=== PATIENT | female | born 1985 | race American Indian/Alaskan Native ===

== ENCOUNTER 2017-05-31 08:53 | Day surgery (SDC) | payer BC ==
[~2017-05-31] VITALS: Ht 160 cm; Wt 57.5 kg
[~2017-05-31 08:53] MED LIST: AMOX500 PO; AZIT250 PO; CYCL10 PO; HYDACE5 PO; IBUP800 PO; MULVITMINE PO; NITR100CA PO; Norco 5-325 Ta1 EACH PO; OXYACE5T PO; PHENA200 PO; PROCODE120 PO; PRODEXEL PO
[2017-05-31] MEDS ORDERED: IBUP800 PO (09:37)
== END 2017-05-31 10:44 | disposition home or self-care (01) ==
LOC: ORSCSDS 08:53
PROVIDERS: Anesthesiology
PROC: 3E0R33Z Introduction of Anti-inflammatory into Spinal Canal, Percutaneous Approach (ICD-10-PCS; principal; 2017-05-31 10:00)
DX: M54.16 Radiculopathy, lumbar region (principal); Z87.891 Personal history of nicotine dependence; Z79.899 Other long term (current) drug therapy
CPT/HCPCS: J1040

== ENCOUNTER 2017-06-30 11:00 | Day surgery (SDC) | payer BC ==
[~2017-06-30] VITALS: Ht 160 cm; Wt 59.9 kg
== END 2017-06-30 22:52 | disposition home or self-care (01) ==
LOC: ORSCMMR 11:00
PROVIDERS: Orthopaedic Surgery
PROC: 0QSKXZZ Reposition Left Fibula, External Approach (ICD-10-PCS; principal; 2017-06-30 12:30)
PROC: 0QSH04Z Reposition Left Tibia with Internal Fixation Device, Open Approach (ICD-10-PCS; principal; 2017-06-30 12:30)
DX: S82.875A Nondisplaced pilon fracture of left tibia, initial encounter for closed fracture (principal); S82.52XA Displaced fracture of medial malleolus of left tibia, initial encounter for closed fracture; S82.832A Other fracture of upper and lower end of left fibula, initial encounter for closed fracture
CPT/HCPCS: C1713; C1769; J0690; J1100; J1170; J1885; J2250; J2405; J2550; J3010; J7120

== ENCOUNTER → 2018-02-02 | Outpatient (CLI) | payer BC | END | disposition home or self-care (01) | LOC: LAB SHORT 09:00 → LAB EV 09:00 | DX: R21 Rash and other nonspecific skin eruption (principal) | CPT/HCPCS: 87070 ==

== ENCOUNTER → 2021-10-07 | Outpatient (CLI) | payer OTHER | LOC: LAB SHORT 13:41 | DX: R22.32 Localized swelling, mass and lump, left upper limb (principal) | CPT/HCPCS: 85379 ==

== ENCOUNTER 2024-03-27 12:08 | Emergency (ER) | payer OTHER ==
[~2024-03-27] VITALS: Ht 157.5 cm; Wt 60.3 kg
[2024-03-27 12:46] VITALS: BP 129/61
== END 2024-03-27 18:34 | disposition home or self-care (01) ==
LOC: ER 12:08
DX: S93.401A Sprain of unspecified ligament of right ankle, initial encounter (principal); W17.89XA Other fall from one level to another, initial encounter; Z87.891 Personal history of nicotine dependence
CPT/HCPCS: 73610; 99283-25

== ENCOUNTER → 2024-07-12 | Outpatient (CLI) | payer OTHER ==
[2024-07-12 10:45] LABS: BASOPHILS ABSOLUTE AUTO 0.07 K/mm3 (0.00-0.23); BASOPHILS PERCENT AUTO 1 % (0-2); EOSINOPHILS ABSOLUTE AUTO 1.19 K/mm3 (0.00-0.68); EOSINOPHILS PERCENT AUTO 12 % (0-6); Hematocrit 47.2 % (33.0-51.0); Hemoglobin 16.5 g/dL (11.5-16.0); IMMATURE GRAN ABSOLUTE AUTO 0.02 K/mm3 (0.00-0.10); IMMATURE GRAN PERCENT AUTO 0 % (0-1); LYMPHOCYTES ABSOLUTE AUTO 1.71 K/mm3 (0.84-5.20); LYMPHOCYTES PERCENT AUTO 18 % (21-46); MONOCYTES ABSOLUTE AUTO 0.84 K/mm3 (0.16-1.47); MONOCYTES PERCENT AUTO 9 % (4-13); Mean Corpuscular HGB 31.5 pg (26.0-34.0); Mean Corpuscular Volume 90 fL (80-100); Mean Platelet Volume 9.2 fL (9.1-12.4); NEUTROPHILS ABSOLUTE AUTO 5.74 K/mm3 (1.96-9.15); NEUTROPHILS PERCENT AUTO 60 % (41-73); Platelet Count 221 K/mm3 (150-400); RDW Standard Deviation 39.5 fL (35.1-46.3); Red Blood Cell Count 5.24 M/mm3 (3.80-5.20); White Blood Cell Count 9.57 K/mm3 (4.00-11.30)
[2024-07-12 11:00] LABS: Albumin, Blood 4.1 g/dL (3.4-5.0); Albumin/Globulin Ratio 1.1 (0.8-1.8); Bilirubin, Total 0.4 mg/dL (0.1-1.0); Bun/Creatinine Ratio 9.2 (12.0-20.0); Calcium, Blood 9.4 mg/dL (8.5-10.1); Creatinine, Blood 0.98 mg/dL (0.40-1.00); Globulin, Blood 3.9 g/dL (2.2-4.0); Potassium, Blood 4.4 mmol/L (3.5-5.5)
== END ==
LOC: LAB 10:40 → LAB SHORT 10:40
PROVIDERS: Physician Assistant
DX: R00.0 Tachycardia, unspecified (principal); R06.02 Shortness of breath
CPT/HCPCS: 80053; 84484; 85025; 85379

== ENCOUNTER 2024-12-02 14:51 | Emergency (ER) | payer OTHER ==
[~2024-12-02] VITALS: Ht 157.5 cm; Wt 63.5 kg
[2024-12-02 15:15] VITALS: BP 127/93
[2024-12-02 16:37] LABS: BASOPHILS ABSOLUTE AUTO 0.05 K/mm3 (0.00-0.23); BASOPHILS PERCENT AUTO 1 % (0-2); EOSINOPHILS ABSOLUTE AUTO 0.59 K/mm3 (0.00-0.68); EOSINOPHILS PERCENT AUTO 7 % (0-6); Hematocrit 48.8 % (33.0-51.0); Hemoglobin 17.4 g/dL (11.5-16.0); IMMATURE GRAN ABSOLUTE AUTO 0.06 K/mm3 (0.00-0.10); IMMATURE GRAN PERCENT AUTO 1 % (0-1); LYMPHOCYTES ABSOLUTE AUTO 1.10 K/mm3 (0.84-5.20); LYMPHOCYTES PERCENT AUTO 12 % (21-46); MONOCYTES ABSOLUTE AUTO 0.89 K/mm3 (0.16-1.47); MONOCYTES PERCENT AUTO 10 % (4-13); Mean Corpuscular HGB Conc 35.7 g/dL (31.5-36.5); Mean Corpuscular Volume 88 fL (80-100); NEUTROPHILS ABSOLUTE AUTO 6.23 K/mm3 (1.96-9.15); NEUTROPHILS PERCENT AUTO 70 % (41-73); NRBC ABSOLUTE 0.00 K/mm3 (0.00-0.02); NRBC Auto 0.0 /100 WBC (0.0-0.2); RDW Coefficient Variation 12.1 % (11.7-14.2); RDW Standard Deviation 39.5 fL (35.1-46.3)
[2024-12-02 17:06] LABS: Alanine Aminotransfer (ALT/SGP 29.0 U/L (12-78); Albumin, Blood 4.6 g/dL (3.4-5.0); Albumin/Globulin Ratio 1.1 (0.8-1.8); Anion Gap 7.0 mmol/L (3-11); Aspartate Aminotrans (AST/SGOT 31.0 U/L (12-37); Bilirubin, Total 0.5 mg/dL (0.1-1.0); Blood Urea Nitrogen 12.0 mg/dL (8-24); CO2, Blood 26.0 mmol/L (21-32); Calcium, Blood 9.8 mg/dL (8.5-10.1); Chloride, Blood 105.0 mmol/L (98-108); Creatinine, Blood 0.84 mg/dL (0.40-1.00); Globulin, Blood 4.1 g/dL (2.2-4.0); Glucose, Blood 92.0 mg/dL (70-99); Potassium, Blood 3.9 mmol/L (3.5-5.5); Sodium, Blood 134.0 mmol/L (136-145); Total Protein, Blood 8.7 g/dL (6.4-8.2)
[2024-12-02] MEDS ORDERED: Robaxin750 MG PO (17:21)
[2024-12-02] MEDS ORDERED: RX Prepack 6 Tabs Oxycodone 5mg UD ONE (17:25)
== END 2024-12-02 17:42 | disposition home or self-care (01) ==
LOC: ER 14:51
PROVIDERS: Student in an Organized Health Care Education/Training Program
DX: S42.021A Displaced fracture of shaft of right clavicle, initial encounter for closed fracture (principal); S62.333A Displaced fracture of neck of third metacarpal bone, left hand, initial encounter for closed fracture; V80.010A Animal-rider injured by fall from or being thrown from horse in noncollision accident, initial encounter; Z87.891 Personal history of nicotine dependence
CPT/HCPCS: 70450; 72125; 73030; 73110; 80053; 84703; 85025; 99284-25; A9270